=== PATIENT | female | born 1980 | race Caucasian/White ===

== ENCOUNTER → 2017-01-26 | Outpatient (CLI) | payer OTHER ==
[~2017-01-26] MED LIST: AUGM875T27 PO; DOXY100C PO; TYLE325T5 PO; TYLE650T30 PO
[2017-01-26 18:59] LABS: CONTROL LINE UCG INT CTR LINE PRESENT
[2017-01-26 19:05] LABS: MEAN CORPUSCULAR HEMOGLOBIN 29.8 pg (27.0-33.0); MEAN CORPUSCULAR HGB CONC 32.7 g/dl (32.0-36.5); MEAN CORPUSCULAR VOLUME 91.3 fl (80.0-96.0); RED CELL DISTRIBUTION WIDTH 12.8 % (11.5-14.5)
[2017-01-26 19:20] LABS: ALBUMIN 4.7 GM/DL (3.2-5.2); ALBUMIN/GLOBULIN RATIO 1.15 (1.00-1.93); ALKALINE PHOSPHATASE 96 U/L (45-117); ALT/SGPT 18 U/L (12-78); ANION GAP 10 MEQ/L (8-16); AST/SGOT 18 U/L (15-37); BILIRUBIN,TOTAL 0.3 MG/DL (0.2-1.0); BLOOD UREA NITROGEN 7 MG/DL (7-18); CALCIUM LEVEL 9.5 MG/DL (8.5-10.1); CARBON DIOXIDE LEVEL 27 MEQ/L (21-32); CHLORIDE LEVEL 104 MEQ/L (98-107); CREATININE FOR GFR 0.94 MG/DL (0.55-1.02); GLOMERULAR FILTRATION RATE > 60.0 (>60); GLUCOSE, FASTING 91 MG/DL (70-105); POTASSIUM SERUM 3.9 MEQ/L (3.5-5.1); SODIUM LEVEL 141 MEQ/L (136-145); TOTAL PROTEIN 8.8 GM/DL (6.4-8.2)
[2017-01-27 14:18] LABS: CONTROL LINE INT CTR LINE PRESENT; HIV SCRN NEGATIVE (NEGATIVE); HIV SCRN1 NEGATIVE (NEGATIVE)
== END ==
LOC: M LAB 17:10
PROVIDERS: ATTEND Family Medicine
DX: Z13.9 Encounter for screening, unspecified (principal); F11.20 Opioid dependence, uncomplicated

== ENCOUNTER → 2017-12-19 | Outpatient (CLI) | payer MEDICAID ==
[2017-12-19 13:24] LABS: HEMATOCRIT 40.9 % (36.0-47.0); HEMOGLOBIN 13.7 g/dl (12.0-16.0); MEAN CORPUSCULAR HEMOGLOBIN 30.1 pg (27.0-33.0); MEAN CORPUSCULAR HGB CONC 33.5 g/dl (32.0-36.5); MEAN CORPUSCULAR VOLUME 89.9 fl (80.0-96.0); PLATELET COUNT, AUTOMATED 388 10^3/uL (150-450); RED BLOOD COUNT 4.55 10^6/uL (4.00-5.40); RED CELL DISTRIBUTION WIDTH 13.3 % (11.5-14.5); WHITE BLOOD COUNT 9.3 10^3/uL (4.0-10.0)
[2017-12-19 13:38] LABS: CONTROL LINE UCG INT CTR LINE PRESENT; URINE PREG TEST NEGATIVE (NEGATIVE)
[2017-12-19 14:07] LABS: ALBUMIN 4.3 GM/DL (3.2-5.2); ALBUMIN/GLOBULIN RATIO 1.23 (1.00-1.93); ALKALINE PHOSPHATASE 94 U/L (45-117); ALT/SGPT 18 U/L (12-78); ANION GAP 8 MEQ/L (8-16); AST/SGOT 19 U/L (7-37); BILIRUBIN,TOTAL 0.3 MG/DL (0.2-1.0); BLOOD UREA NITROGEN 9 MG/DL (7-18); CALCIUM LEVEL 8.7 MG/DL (8.5-10.1); CARBON DIOXIDE LEVEL 31 MEQ/L (21-32); CHLORIDE LEVEL 102 MEQ/L (98-107); CREATININE FOR GFR 0.74 MG/DL (0.55-1.30); GLOMERULAR FILTRATION RATE > 60.0 (>60); GLUCOSE, FASTING 87 MG/DL (70-100); POTASSIUM SERUM 3.7 MEQ/L (3.5-5.1); SODIUM LEVEL 141 MEQ/L (136-145); TOTAL PROTEIN 7.8 GM/DL (6.4-8.2)
[2017-12-19 14:25] LABS: HEPATITIS B SURFACE ANTIGEN NEGATIVE (NEGATIVE)
[2017-12-19 14:53] LABS: HIV 1&2 SCREEN CENTAUR NEGATIVE (NEGATIVE)
[2017-12-19 14:57] LABS: CHLAMYDIA DNA AMPLIFICATION NEGATIVE (NEGATIVE); GC DNA AMPLIFICATION NEGATIVE (NEGATIVE)
[2017-12-19 19:26] LABS: HEPATITIS C VIRUS ABY INDEX 7.3 INDEX (<0.8)
[2017-12-23 00:06] LABS: HCV RNA NAA QUALITATIVE Negative (Negative)
== END ==
LOC: M LAB 12:25
DX: F11.20 Opioid dependence, uncomplicated (principal)
CPT/HCPCS: 93005

== ENCOUNTER 2017-12-29 19:56 | Emergency (ER) | payer MEDICAID ==
[2017-12-29] MEDS: BACTRIM 160MG/800MG DS TAB PO (21:24)
== END 2017-12-29 21:40 | disposition home or self-care (01) ==
LOC: M ED 19:56
DX: L02.03 Carbuncle of face (principal); F19.21 Other psychoactive substance dependence, in remission; Z79.899 Other long term (current) drug therapy; F17.210 Nicotine dependence, cigarettes, uncomplicated
CPT/HCPCS: 99282

== ENCOUNTER → 2018-01-30 | Outpatient (CLI) | payer OTHER, MEDICAID ==
[2018-01-30 11:34] LABS: HEMATOCRIT 39.1 % (36.0-47.0); HEMOGLOBIN 12.7 g/dl (12.0-16.0); MEAN CORPUSCULAR HEMOGLOBIN 28.2 pg (27.0-33.0); MEAN CORPUSCULAR HGB CONC 32.5 g/dl (32.0-36.5); MEAN CORPUSCULAR VOLUME 86.9 fl (80.0-96.0); PLATELET COUNT, AUTOMATED 296 10^3/uL (150-450); WHITE BLOOD COUNT 8.3 10^3/uL (4.0-10.0)
[2018-01-30 11:37] LABS: AMORPHOUS SEDIMENT SMALL (NEGATIVE); APPEARANCE, URINE HAZY (CLEAR); BACTERIA, URINE AUTO 1+ (NEGATIVE); BILIRUBIN, URINE AUTO NEGATIVE (NEGATIVE); BLOOD, URINE BLOOD 2+ (NEGATIVE); COLOR, URINE YELLOW (YELLOW); GLUCOSE, URINE (UA) AUTO NEGATIVE (NEGATIVE); KETONE, URINE AUTO NEGATIVE (NEGATIVE); LEUKOCYTE ESTERASE, URINE AUTO NEGATIVE (NEGATIVE); MUCUS, URINE SMALL (NEGATIVE); NITRITE, URINE AUTO NEGATIVE (NEGATIVE); PROTEIN, URINE AUTO NEGATIVE (NEGATIVE); RBC, URINE AUTO 7 /HPF (0-3); SPECIFIC GRAVITY URINE AUTO 1.025 (1.002-1.035); SQUAMOUS EPITHELIAL CELL UR AU 7 /HPF (0-6); UROBILINOGEN, URINE AUTO 0.2 mg/dL (0.0-2.0); WBC, URINE AUTO 3 /HPF (0-3)
[2018-01-30 12:15] LABS: ALBUMIN 3.9 GM/DL (3.2-5.2); ALBUMIN/GLOBULIN RATIO 1.26 (1.00-1.93); ALKALINE PHOSPHATASE 74 U/L (45-117); ALT/SGPT 18 U/L (12-78); ANION GAP 5 MEQ/L (8-16); AST/SGOT 17 U/L (7-37); BILIRUBIN,TOTAL 0.2 MG/DL (0.2-1.0); BLOOD UREA NITROGEN 16 MG/DL (7-18); CALCIUM LEVEL 8.6 MG/DL (8.5-10.1); CARBON DIOXIDE LEVEL 28 MEQ/L (21-32); CHLORIDE LEVEL 108 MEQ/L (98-107); CREATININE FOR GFR 0.72 MG/DL (0.55-1.30); GLOMERULAR FILTRATION RATE > 60.0 (>60); GLUCOSE, FASTING 94 MG/DL (70-100); POTASSIUM SERUM 4.3 MEQ/L (3.5-5.1); SODIUM LEVEL 141 MEQ/L (136-145)
== END ==
LOC: M LAB 10:45
DX: F11.20 Opioid dependence, uncomplicated (principal); F15.20 Other stimulant dependence, uncomplicated; F41.9 Anxiety disorder, unspecified
CPT/HCPCS: 93005

== ENCOUNTER → 2018-01-30 | Outpatient (CLI) | payer OTHER, MEDICAID ==
[2018-01-30 11:35] LABS: BASO % 0.5 % (0.0-1.0); EOS # 0.2 10^3/uL (0.0-0.50); EOS % 2.3 % (0.0-3.0); HEMATOCRIT 37.6 % (36.0-47.0); HEMOGLOBIN 12.3 g/dl (12.0-16.0); IMMATURE GRANULOCYTE % 0.3 % (0-3.0); LYMPH # 3.2 10^3/uL (1.5-4.5); LYMPH % 36.9 % (24.0-44.0); MEAN CORPUSCULAR HEMOGLOBIN 28.7 pg (27.0-33.0); MEAN CORPUSCULAR HGB CONC 32.7 g/dl (32.0-36.5); MEAN CORPUSCULAR VOLUME 87.6 fl (80.0-96.0); MONO # 0.7 10^3/uL (0.0-0.8); NEUTROPHILS # 4.6 10^3/uL (1.8-7.7); PLATELET COUNT, AUTOMATED 315 10^3/uL (150-450); RED BLOOD COUNT 4.29 10^6/uL (4.00-5.40); RED CELL DISTRIBUTION WIDTH 13.1 % (11.5-14.5); WHITE BLOOD COUNT 8.8 10^3/uL (4.0-10.0)
[2018-01-30 12:13] LABS: ALBUMIN 3.8 GM/DL (3.2-5.2); ALBUMIN/GLOBULIN RATIO 1.19 (1.00-1.93); ALKALINE PHOSPHATASE 75 U/L (45-117); ALT/SGPT 21 U/L (12-78); ANION GAP 7 MEQ/L (8-16); AST/SGOT 17 U/L (7-37); BILIRUBIN,TOTAL 0.2 MG/DL (0.2-1.0); BLOOD UREA NITROGEN 16 MG/DL (7-18); CALCIUM LEVEL 8.9 MG/DL (8.5-10.1); CARBON DIOXIDE LEVEL 29 MEQ/L (21-32); CHLORIDE LEVEL 106 MEQ/L (98-107); CHOLESTEROL LEVEL 164 MG/DL (<200); CHOLESTEROL RISK RATIO 2.603 (<5); CREATININE FOR GFR 0.76 MG/DL (0.55-1.30); GLOMERULAR FILTRATION RATE > 60.0 (>60); GLUCOSE, FASTING 89 MG/DL (70-100); HDL CHOLESTEROL 63 MG/DL (>40); IRON (FE) 37 UG/DL (50-170); LDL CHOLESTEROL 92.6 MG/DL (<100); LIPASE 128 U/L (73-393); NON-HDL-C 101 MG/DL; POTASSIUM SERUM 4.4 MEQ/L (3.5-5.1); SODIUM LEVEL 142 MEQ/L (136-145); TRIGLYCERIDES LEVEL 42 MG/DL (<150)
[2018-01-30 12:16] LABS: ERYTHROCYTE SEDIMENTATION RATE 17 mm/hr (0-20)
[2018-01-30 13:23] LABS: CHLAMYDIA DNA AMPLIFICATION NEGATIVE (NEGATIVE); GC DNA AMPLIFICATION NEGATIVE (NEGATIVE)
[2018-01-30 13:24] LABS: HIV 1&2 SCREEN CENTAUR NEGATIVE (NEGATIVE)
[2018-01-30 13:52] LABS: HEPATITIS C VIRUS ABY INDEX 5.7 INDEX (<0.8)
[2018-02-02 00:06] LABS: HCV RNA NAA QUALITATIVE Negative (Negative)
== END ==
LOC: M LAB 10:49
DX: Z11.3 Encounter for screening for infections with a predominantly sexual mode of transmission (principal); R10.9 Unspecified abdominal pain; F19.10 Other psychoactive substance abuse, uncomplicated; K21.9 Gastro-esophageal reflux disease without esophagitis; Z13.220 Encounter for screening for lipoid disorders; K92.1 Melena
CPT/HCPCS: 83540

== ENCOUNTER 2018-03-07 22:11 | Inpatient (IN) | payer MEDICAID, OTHER ==
[2018-03-07 23:39] LABS: HEMATOCRIT 43.1 % (36.0-47.0); MEAN CORPUSCULAR HEMOGLOBIN 28.9 pg (27.0-33.0); MEAN CORPUSCULAR HGB CONC 32.5 g/dl (32.0-36.5); MEAN CORPUSCULAR VOLUME 88.9 fl (80.0-96.0); PLATELET COUNT, AUTOMATED 317 10^3/uL (150-450); RED BLOOD COUNT 4.85 10^6/uL (4.00-5.40); RED CELL DISTRIBUTION WIDTH 13.2 % (11.5-14.5); WHITE BLOOD COUNT 8.5 10^3/uL (4.0-10.0)
[2018-03-07 23:55] LABS: CONTROL LINE HCG INT CTR LINE PRESENT; HCG, SERUM QUALITATIVE NEGATIVE (NEGATIVE)
[2018-03-08 00:11] LABS: ALBUMIN 3.8 GM/DL (3.2-5.2); ALBUMIN/GLOBULIN RATIO 1.09 (1.00-1.93); ALKALINE PHOSPHATASE 68 U/L (45-117); ALT/SGPT 27 U/L (12-78); ANION GAP 7 MEQ/L (8-16); AST/SGOT 28 U/L (7-37); BILIRUBIN,DIRECT < 0.1 MG/DL (0.0-0.2); BILIRUBIN,TOTAL 0.1 MG/DL (0.2-1.0); BLOOD UREA NITROGEN 10 MG/DL (7-18); CALCIUM LEVEL 8.9 MG/DL (8.5-10.1); CARBON DIOXIDE LEVEL 27 MEQ/L (21-32); CHLORIDE LEVEL 110 MEQ/L (98-107); CREATININE FOR GFR 0.86 MG/DL (0.55-1.30); GLOMERULAR FILTRATION RATE > 60.0 (>60); GLUCOSE, FASTING 120 MG/DL (70-100); POTASSIUM SERUM 4.3 MEQ/L (3.5-5.1); SALICYLATE LEVEL 4.1 MG/DL (5.0-30.0); SODIUM LEVEL 144 MEQ/L (136-145); THYROID STIMULATING HORMONE 0.158 uIU/ML (0.358-3.740); TOTAL PROTEIN 7.3 GM/DL (6.4-8.2)
[2018-03-08 00:12] LABS: ACETAMINOPHEN LEVEL < 2.0 UG/ML (10.0-30.0); ETHYL ALCOHOL (ETHANOL) < 0.003 % (0.000-0.010)
[2018-03-08 00:59] LABS: AMPHETAMINES LEVEL URINE POSITIVE (NEGATIVE); BARBITURATES URINE NEGATIVE (NEGATIVE); BENZODIAZEPINES URINE NEGATIVE (NEGATIVE); CANNABINOIDS URINE POSITIVE (NEGATIVE); COCAINE METABOLITE URINE NEGATIVE (NEGATIVE); METHADONE URINE POSITIVE (NEGATIVE); OPIATES URINE POSITIVE (NEGATIVE); PHENCYCLIDINE URINE NEGATIVE (NEGATIVE)
[2018-03-08] MEDS ORDERED: MOM 30ML SUSPENSION UDC PO (01:15)
[2018-03-08] MEDS ORDERED: MAALOX 30 ML SUSP *UDC PO (01:15)
[2018-03-08] MEDS ORDERED: ACETAMINOPHEN TAB 650MG DOSE (2X325MG) PO (01:15)
[2018-03-08] MEDS ORDERED: OXAZEPAM 15 MG CAP PO (01:15)
[2018-03-08] MEDS ORDERED: MIRALAX *UNIT DOSE* 17GM PACKET PO (09:00)
[2018-03-08] MEDS: busPIRone 10 MG TAB PO ×3 (09:12→21:00)
[2018-03-08] MEDS: FLUoxetine 20 MG CAP PO (09:12)
[2018-03-08] MEDS: METHADONE 10 MG TAB (S0109) PO (09:12)
[2018-03-09 08:27] LABS: FREE THYROXINE INDEX 3.2 % (1.3-4.8); T UPTAKE 35 % (30-39); THYROID STIMULATING HORMONE 0.202 uIU/ML (0.358-3.740)
[2018-03-09] MEDS: FLUoxetine 20 MG CAP PO (09:10)
[2018-03-09] MEDS: INFLUENZA QUADRIVALENT PF VACCINE 0.5ML SYRINGE (90686) IM (09:11)
[2018-03-09] MEDS: METHADONE 10 MG TAB (S0109) PO (09:11)
[2018-03-09] MEDS: busPIRone 10 MG TAB PO ×3 (09:50→21:02)
[2018-03-09] MEDS: traZODone 50 MG TAB PO (21:01)
[2018-03-10] MEDS: FLUoxetine 20 MG CAP PO (08:06)
[2018-03-10] MEDS: busPIRone 10 MG TAB PO (08:06)
[2018-03-10] MEDS: METHADONE 10 MG TAB (S0109) PO (08:07)
== END 2018-03-10 12:00 | disposition home or self-care (01) | DRG 885 ==
LOC: M ED INP 03-08 01:12 → M ED 22:11 → M PSY 03-08 01:50
DX: F33.2 Major depressive disorder, recurrent severe without psychotic features (principal); R45.851 Suicidal ideations; F11.10 Opioid abuse, uncomplicated; K59.09 Other constipation; R94.6 Abnormal results of thyroid function studies; F15.10 Other stimulant abuse, uncomplicated; F17.210 Nicotine dependence, cigarettes, uncomplicated; Z79.899 Other long term (current) drug therapy

== ENCOUNTER 2018-10-24 20:06 | Emergency (ER) | payer MEDICAID ==
[2018-10-24 20:47] LABS: CALCIUM OXALATE CRYSTALS RFX LARGE; KETONE, URINE AUTO RFX NEGATIVE (NEGATIVE); MUCUS, URINE RFX SMALL (NEGATIVE); RBC, URINE AUTO RFX 10 /HPF (0-3); SPECIFIC GRAVITY UR AUTO RFX 1.026 (1.002-1.035); SQUAM EPITHELIAL CELL UR AURFX 10 /HPF (0-6)
[2018-10-24 20:48] LABS: LEUKOCYTE ESTERASE UR AUTO RFX TRACE (NEGATIVE); NITRITE, URINE AUTO RFX POSITIVE (NEGATIVE); WBC, URINE AUTO RFX 12 /HPF (0-3)
[2018-10-24 21:07] LABS: CONTROL LINE UCG INT CTR LINE PRESENT; URINE PREG TEST NEGATIVE (NEGATIVE)
[2018-10-24] MEDS: KETOROLAC 30 MG/ML VIAL (J1885) IV (21:30)
[2018-10-24 21:54] LABS: BASO # 0.1 10^3/uL (0.0-0.2); BASO % 0.5 % (0.0-1.0); EOS # 0.3 10^3/uL (0.0-0.50); EOS % 2.3 % (0.0-3.0); HEMATOCRIT 39.5 % (36.0-47.0); IMMATURE GRANULOCYTE % 0.6 % (0-3.0); LYMPH # 3.7 10^3/uL (1.5-4.5); LYMPH % 27.7 % (24.0-44.0); MEAN CORPUSCULAR HEMOGLOBIN 29.9 pg (27.0-33.0); MEAN CORPUSCULAR HGB CONC 32.9 g/dl (32.0-36.5); MEAN CORPUSCULAR VOLUME 90.8 fl (80.0-96.0); MONO # 1.2 10^3/uL (0.0-0.8); NEUTROPHILS # 7.9 10^3/uL (1.8-7.7); NEUTROPHILS % 59.9 % (36.0-66.0); PLATELET COUNT, AUTOMATED 362 10^3/uL (150-450); RED BLOOD COUNT 4.35 10^6/uL (4.00-5.40); RED CELL DISTRIBUTION WIDTH 13.2 % (11.5-14.5); WHITE BLOOD COUNT 13.3 10^3/uL (4.0-10.0)
[2018-10-24] MEDS: cefTRIAXone SOD 1 GM in D5W MINI-BAG PLUS 50 ML IV (23:00)
[2018-10-24 23:14] LABS: ANION GAP 5 MEQ/L (8-16); BLOOD UREA NITROGEN 10 MG/DL (7-18); C REACTIVE PROTEIN QUANTITATIV < 0.30 MG/DL (0.00-0.30); CALCIUM LEVEL 7.4 MG/DL (8.5-10.1); CARBON DIOXIDE LEVEL 27 MEQ/L (21-32); CHLORIDE LEVEL 109 MEQ/L (98-107); CREATININE FOR GFR 0.71 MG/DL (0.55-1.30); GLOMERULAR FILTRATION RATE > 60.0 (>60); GLUCOSE, FASTING 78 MG/DL (70-100); SODIUM LEVEL 141 MEQ/L (136-145)
== END 2018-10-24 23:39 | disposition home or self-care (01) ==
LOC: M ED 20:06
DX: N39.0 Urinary tract infection, site not specified (principal); Z87.442 Personal history of urinary calculi; Z87.440 Personal history of urinary (tract) infections; Z72.0 Tobacco use
CPT/HCPCS: J0696

== ENCOUNTER 2018-10-31 23:07 | Inpatient (IN) | payer MEDICAID ==
[2018-10-31] MEDS: PHENobarbital 30 MG TAB PO (23:45)
[2018-11-01 00:46] LABS: HEMATOCRIT 41.1 % (36.0-47.0); HEMOGLOBIN 13.2 g/dl (12.0-15.5); MEAN CORPUSCULAR HEMOGLOBIN 29.1 pg (27.0-33.0); MEAN CORPUSCULAR HGB CONC 32.1 g/dl (32.0-36.5); MEAN CORPUSCULAR VOLUME 90.5 fl (80.0-96.0); PLATELET COUNT, AUTOMATED 413 10^3/uL (150-450); RED BLOOD COUNT 4.54 10^6/uL (4.00-5.40); RED CELL DISTRIBUTION WIDTH 13.5 % (11.5-14.5)
[2018-11-01 00:48] LABS: CONTROL LINE HCG INT CTR LINE PRESENT; HCG, SERUM QUALITATIVE NEGATIVE (NEGATIVE)
[2018-11-01 01:48] LABS: BILIRUBIN,DIRECT < 0.1 MG/DL (0.0-0.2); BILIRUBIN,TOTAL 0.1 MG/DL (0.2-1.0); CHLORIDE LEVEL 107 MEQ/L (98-107); ETHYL ALCOHOL (ETHANOL) < 0.003 % (0.000-0.010); SALICYLATE LEVEL 2.9 MG/DL (5.0-30.0); SODIUM LEVEL 143 MEQ/L (136-145); TOTAL PROTEIN 7.3 GM/DL (6.4-8.2)
[2018-11-01 01:49] LABS: ACETAMINOPHEN LEVEL < 2.0 UG/ML (10.0-30.0); ALKALINE PHOSPHATASE 106 U/L (45-117); ALT/SGPT 17 U/L (12-78); AST/SGOT 12 U/L (7-37); THYROID STIMULATING HORMONE 0.455 uIU/ML (0.358-3.740)
[2018-11-01 01:50] LABS: CREATININE FOR GFR 0.95 MG/DL (0.55-1.30); GLOMERULAR FILTRATION RATE > 60.0 (>60)
[2018-11-01 01:53] LABS: ALBUMIN 3.8 GM/DL (3.2-5.2); ALBUMIN/GLOBULIN RATIO 1.09 (1.00-1.93); BLOOD UREA NITROGEN 10 MG/DL (7-18); CALCIUM LEVEL 8.7 MG/DL (8.5-10.1); CARBON DIOXIDE LEVEL 28 MEQ/L (21-32); GLUCOSE, FASTING 118 MG/DL (70-100)
[2018-11-01 01:54] LABS: ANION GAP 8 MEQ/L (8-16)
[2018-11-01 01:58] LABS: AMPHETAMINES LEVEL URINE NEGATIVE (NEGATIVE); BARBITURATES URINE NEGATIVE (NEGATIVE); BENZODIAZEPINES URINE NEGATIVE (NEGATIVE); CANNABINOIDS URINE POSITIVE (NEGATIVE); COCAINE METABOLITE URINE NEGATIVE (NEGATIVE); METHADONE URINE NEGATIVE (NEGATIVE); OPIATES URINE NEGATIVE (NEGATIVE); PHENCYCLIDINE URINE NEGATIVE (NEGATIVE)
[2018-11-01] MEDS ORDERED: MAALOX 30 ML SUSP *UDC PO (02:30)
[2018-11-01] MEDS ORDERED: ACETAMINOPHEN TAB 650MG DOSE (2X325MG) PO (02:30)
[2018-11-01] MEDS ORDERED: MOM 30ML SUSPENSION UDC PO (02:30)
[2018-11-01] MEDS: FLUoxetine 20 MG CAP PO (15:53)
[2018-11-01] MEDS: lamoTRIgine 25 MG TAB PO (15:53)
[2018-11-01] MEDS: busPIRone 10 MG TAB PO (21:00)
[2018-11-02 06:29] LABS: HEMATOCRIT 39.9 % (36.0-47.0); MEAN CORPUSCULAR HEMOGLOBIN 29.2 pg (27.0-33.0); MEAN CORPUSCULAR HGB CONC 32.6 g/dl (32.0-36.5); MEAN CORPUSCULAR VOLUME 89.7 fl (80.0-96.0); PLATELET COUNT, AUTOMATED 364 10^3/uL (150-450); RED BLOOD COUNT 4.45 10^6/uL (4.00-5.40); RED CELL DISTRIBUTION WIDTH 13.5 % (11.5-14.5)
[2018-11-02] MEDS: FLUoxetine 20 MG CAP PO (10:24)
[2018-11-02] MEDS: lamoTRIgine 25 MG TAB PO ×2 (10:24→21:00)
[2018-11-02] MEDS: busPIRone 10 MG TAB PO ×2 (10:24→21:00)
[2018-11-02] MEDS: OLANZapine ORAL DISINTEGRATING TAB 5MG PO (13:38)
[2018-11-02] MEDS: LURASIDONE 20 MG TAB (LATUDA) PO (18:07)
[2018-11-03] MEDS: FLUoxetine 20 MG CAP PO (08:49)
[2018-11-03] MEDS: busPIRone 10 MG TAB PO ×2 (08:49→21:08)
[2018-11-03] MEDS: lamoTRIgine 25 MG TAB PO ×3 (08:49→21:08)
[2018-11-03] MEDS: GABAPENTIN 300 MG CAP PO ×2 (15:29→21:08)
[2018-11-03] MEDS: LURASIDONE 20 MG TAB (LATUDA) PO (17:56)
[2018-11-04] MEDS: FLUoxetine 20 MG CAP PO (09:10)
[2018-11-04] MEDS: busPIRone 10 MG TAB PO ×2 (09:10→21:22)
[2018-11-04] MEDS: lamoTRIgine 25 MG TAB PO ×3 (09:10→21:22)
[2018-11-04] MEDS: GABAPENTIN 300 MG CAP PO ×3 (09:10→21:22)
[2018-11-04] MEDS: LURASIDONE 20 MG TAB (LATUDA) PO (17:55)
[2018-11-05] MEDS: FLUoxetine 20 MG CAP PO (09:06)
[2018-11-05] MEDS: GABAPENTIN 300 MG CAP PO ×3 (09:06→22:44)
[2018-11-05] MEDS: lamoTRIgine 25 MG TAB PO ×3 (09:06→22:44)
[2018-11-05] MEDS: busPIRone 10 MG TAB PO ×2 (09:06→22:44)
[2018-11-05] MEDS: OLANZapine ORAL DISINTEGRATING TAB 5MG PO (12:21)
[2018-11-05] MEDS: LURASIDONE 20 MG TAB (LATUDA) PO (18:32)
[2018-11-05] MEDS: traZODone 50 MG TAB PO (22:44)
[2018-11-06] MEDS: FLUoxetine 20 MG CAP PO (08:48)
[2018-11-06] MEDS: lamoTRIgine 25 MG TAB PO (08:49)
[2018-11-06] MEDS: busPIRone 10 MG TAB PO (08:49)
[2018-11-06] MEDS: GABAPENTIN 300 MG CAP PO (08:49)
[2018-11-06] MEDS: OLANZapine ORAL DISINTEGRATING TAB 5MG PO (12:05)
== END 2018-11-06 13:03 | disposition home or self-care (01) | DRG 753 ==
LOC: M ED 23:07 → M ED INP 11-01 02:17 → M PSY 11-01 02:50
DX: F31.60 Bipolar disorder, current episode mixed, unspecified (principal); D72.829 Elevated white blood cell count, unspecified; F11.90 Opioid use, unspecified, uncomplicated; F15.90 Other stimulant use, unspecified, uncomplicated; F41.9 Anxiety disorder, unspecified; F17.200 Nicotine dependence, unspecified, uncomplicated

== ENCOUNTER → 2019-01-04 | Outpatient (CLI) | payer MEDICAID, OTHER ==
[~2019-01-04] MED LIST changes: -AUGM875T27 PO; +AUGM875T28 PO; +BACT800T5 PO; +BUPR15TA PO; +BUSP10TA PO; +BUSP30TA PO; +CIPR-249 PO; +CIPR500T3 PO; +FLUO20CA19 PO; +GABA-843 PO; +KETO10TAB PO; +LAMI25TA PO; +LATU20TA PO; +METH10CO PO; +MIRA33504 PO; +OMEP20CA3; +PATIENT COMMENT; +PRAZ1CAP PO; +PROZ20CA11 PO; +TRAZO50TA PO
[2019-01-04 18:35] LABS: BASO # 0.1 10^3/uL (0.0-0.2); BASO % 0.7 % (0.0-1.0); EOS # 0.2 10^3/uL (0.0-0.50); EOS % 1.6 % (0.0-3.0); HEMATOCRIT 42.7 % (36.0-47.0); HEMOGLOBIN 14.1 g/dl (12.0-15.5); LYMPH # 3.1 10^3/uL (1.5-4.5); LYMPH % 22.5 % (24.0-44.0); MEAN CORPUSCULAR HEMOGLOBIN 29.2 pg (27.0-33.0); MEAN CORPUSCULAR VOLUME 88.4 fl (80.0-96.0); MONO # 0.7 10^3/uL (0.0-0.8); MONO % 5.2 % (0.0-5.0); NEUTROPHILS # 9.5 10^3/uL (1.8-7.7); PLATELET COUNT, AUTOMATED 440 10^3/uL (150-450); RED BLOOD COUNT 4.83 10^6/uL (4.00-5.40); WHITE BLOOD COUNT 13.8 10^3/uL (4.0-10.0)
[2019-01-04 18:42] LABS: ALT/SGPT 16 U/L (12-78); BILIRUBIN,TOTAL 0.2 MG/DL (0.2-1.0); BLOOD UREA NITROGEN 14 MG/DL (7-18); CALCIUM LEVEL 9.5 MG/DL (8.5-10.1); CARBON DIOXIDE LEVEL 26 MEQ/L (21-32); CHLORIDE LEVEL 100 MEQ/L (98-107); CREATININE FOR GFR 0.63 MG/DL (0.55-1.30); GLOMERULAR FILTRATION RATE > 60.0 (>60); GLUCOSE, FASTING 84 MG/DL (70-100); POTASSIUM SERUM 4.2 MEQ/L (3.5-5.1); SODIUM LEVEL 136 MEQ/L (136-145)
[2019-01-04 19:39] LABS: CHLAMYDIA DNA AMPLIFICATION NEGATIVE (NEGATIVE); GC DNA AMPLIFICATION NEGATIVE (NEGATIVE)
[2019-01-05 11:37] LABS: HEPATITIS B SURFACE ANTIBODY POSITIVE (POSITIVE)
[2019-01-05 13:12] LABS: HIV 1&2 SCREEN CENTAUR NEGATIVE (NEGATIVE); RUBELLA IgG QUALITATIVE IMMUNE (IMMUNE)
[2019-01-05 13:13] LABS: HEPATITIS C VIRUS ABY INDEX 5.4 INDEX (<0.8)
[2019-01-10 00:07] LABS: HEPATITIS A IgG TOTAL Positive (Negative); HEPATITIS B CORE ANTIBODY IGG Negative (Negative); HEPATITIS C QUANTITATION HCV Not Detected IU/mL (.)
== END ==
LOC: M SMT 14:28
PROVIDERS: ATTEND Advanced Practice Midwife
DX: Z36.89 Encounter for other specified antenatal screening (principal)

== ENCOUNTER → 2019-01-24 | Outpatient (CLI) | payer MEDICAID, OTHER ==
--- NOTE | 2019-01-24 16:21 | REP ---
Obstetric ultrasound for dating and viability: There is a single intrauterine gestation in a vertex presentation. There is movement and cardiac activity. heart rate is 156 beats per minute. The placenta is posterior without previa or abruptio and is grade zero maturity. Subjectively the amniotic fluid volume appears normal. The cervix measures 2.6 cm length. Based on the ultrasound today gestational age is 15 weeks 4 days with an SHYANNE of 07/14/2019. The LMP is unknown. weight is 130 grams/0 pounds, 4 ounces. This is the 42nd percentile for 15 weeks 4 days. The following anatomic structures are identified and are unremarkable: Cranium, cavum septum pellucidum, intracranial lateral ventricles, lungs, facial profile, four-chamber heart, cardiac right and left ventricular outflow tracts, diaphragm, stomach, cord insertion, three-vessel cord, kidneys, bladder, spine and upper lower extremities. Suboptimally demonstrated because of position is the upper lip. A followup study dedicated to these structures might be considered. There are bilateral choroid plexus cysts. Electronically Signed by Luciano Mcdonnell MD 01/24/2019 04:13 P
== END ==
LOC: M RAD 13:52
PROVIDERS: ATTEND Advanced Practice Midwife
DX: Z34.82 Encounter for supervision of other normal pregnancy, second trimester (principal); Z36.87 Encounter for antenatal screening for uncertain dates; Z3A.15 15 weeks gestation of pregnancy

== ENCOUNTER 2019-07-16 11:04 | Inpatient (IN) | payer MEDICAID, OTHER ==
[~2019-07-16] VITALS: Ht 165.1 cm; Wt 86.0 kg
[~2019-07-16 11:04] MED LIST changes: -COLA100C5 PO; -IBUP80TA PO; -LABE20TAB PO; -OXYC1TAB23 PO
[2019-07-16] MEDS ORDERED: LR 1,000 ML IV SCH (11:05)
[2019-07-16] MEDS ORDERED: BICITRA 30ML SOLN UDC PO ONE (11:15)
[2019-07-16 11:25] VITALS: BP 139/87
[2019-07-16 11:42] VITALS: BP 133/83
[2019-07-16 12:35] LABS: HEMATOCRIT 32.7 % (36.0-47.0); HEMOGLOBIN 10.5 g/dl (12.0-15.5); MEAN CORPUSCULAR HEMOGLOBIN 26.1 pg (27.0-33.0); MEAN CORPUSCULAR HGB CONC 32.1 g/dl (32.0-36.5); MEAN CORPUSCULAR VOLUME 81.3 fl (80.0-96.0); PLATELET COUNT, AUTOMATED 387 10^3/uL (150-450); RED BLOOD COUNT 4.02 10^6/uL (4.00-5.40); WHITE BLOOD COUNT 11.1 10^3/uL (4.0-10.0)
[2019-07-16 13:02] LABS: AMPHETAMINES URINE REFLEX NEGATIVE (NEGATIVE); BARBITURATES URINE REFLEX NEGATIVE (NEGATIVE); BENZODIAZEPINES URINE REFLEX NEGATIVE (NEGATIVE); CANNABINOIDS URINE REFLEX NEGATIVE (NEGATIVE); COCAINE METABOLITE URINE REFLE NEGATIVE (NEGATIVE); METHADONE URINE REFLEX NEGATIVE (NEGATIVE); OPIATES URINE REFLEX NEGATIVE (NEGATIVE); PHENCYCLIDINE URINE REFLEX NEGATIVE (NEGATIVE); TOTAL PROTEIN,RANDOM URINE 55.9 MG/DL (0.0-12.0)
[2019-07-16 13:04] LABS: ALT/SGPT 9 U/L (12-78); BILIRUBIN,TOTAL 0.2 MG/DL (0.2-1.0); GLOMERULAR FILTRATION RATE > 60.0 (>60); LDH LACTATE DEHYDROGENASE 226 U/L (84-246); URIC ACID 3.7 MG/DL (2.6-6.0)
--- NOTE | 2019-07-16 13:06 | HPE ---
DATE OF ADMISSION: 07/16/2019 Nila is a 39-year-old 4, para 3-0-0-3 at 39-5/7 weeks gestation with an estimated date of confinement (EDC) of 07/18/2019 based on her report of conception date and confirmed by second trimester ultrasound. She does present to labor and delivery today following a visit in the office at [facility] where she was noted to have severe range hypertension. She reports that she has been recently checked for preeclampsia as she was incarcerated [facility] and the last time she was seen was last week for an ultrasound. She does deny headaches, visual disturbances, epigastric pain and right upper quadrant discomfort. She denies contractions, vaginal bleeding or leakage of fluid. The fetus has been active. Her care was initiated late in her due to incarceration. She did get sporadic care throughout her incarceration and has had two visits with [facility]. Her course complicated by severe range hypertension, incarceration, advanced maternal age, hepatitis C positive, illicit drug use during early , marijuana, methamphetamine and currently breech presentation. OBSTETRICAL HISTORY: May 2000, 40 week gestation, 6 pounds 9 ounces female vaginal delivery, no complications. December 2002, 40 weeks, 6 pounds 13 ounces male vaginal delivery, no complications. September 2005, 40 weeks gestation, 6 pounds 7 ounces female vaginal delivery, no complications. OBSTETRICAL LABORATORIES: O+, antibody screen negative, rubella immune, VDRL nonreactive. Urine culture no growth. Hep B surface antigen negative, HIV negative. Hep C antibody reactive. Gonorrhea and chlamydia negative. No records for review from her care during her incarceration, unknown if she completed the gestational diabetic screening or GBS during her . PAST MEDICAL HISTORY: Hepatitis C, abnormal Pap smear, childhood varicella. SURGERIES: None. FAMILY HISTORY: Diabetes. SOCIAL HISTORY: The patient is single. She does have a support person present. She reports that she quit smoking due to incarceration. She does report a history of methamphetamine, heroin and marijuana use in November 2018. Chlamydia in her history. Denies history of abuse; physical, sexual and emotional allergies. ALLERGIES: No known drug allergies. CURRENT MEDICATIONS: Reported as vitamins. OBJECTIVE: Temperature 98.1, pulse 95, respirations 16, blood pressure 139/87 with a repeat blood pressure 133/83. heart rate is 135 with moderate variability, positive accelerations, no decelerations. There is no pattern of regular contractions. Sterile vaginal exam is deferred. Breech presentation was confirmed with bedside ultrasound in the office. OBJECTIVE: Intrauterine at 39-5/7 weeks. heart rate category 1, gestational hypertension, preeclampsia. PLAN: Per consult with Dr. Estephania Cooper, admit the patient to labor and delivery. Plan for primary section due to elevated blood pressure and breech presentation. Orders have been placed for routine labs. With the addition of pre-eclamptic labs and a spot urine, urine drug screen, out of bed ad dmitry, nothing by mouth status. The patient will be consented by Dr. Estephania Cooper. Risks, benefits and alternatives have been reviewed. The patient's questions have been answered. Plan will be for section later in the day. Anesthesia and supervisor international reservations notified.
[2019-07-16 16:17] VITALS: BP 138/77
[2019-07-16 17:25] VITALS: BP 119/66
[2019-07-16] MEDS ORDERED: OXYTOCIN INJ 10 UNITS/ML VIAL (J2590) As Ordered ONE ×3 (19:24→20:51)
[2019-07-16] MEDS ORDERED: MORPHINE PRES-FREE INJ 10 MG/10 ML VIAL (J2274) As Ordered ONE (19:27)
[2019-07-16] MEDS ORDERED: NALOXONE INJ 0.4 MG/1 ML VIAL (J2310) IV PRN ×2 (19:45)
[2019-07-16] MEDS ORDERED: METOCLOPRAMIDE INJ 10MG/2ML VIAL (J2765) IV PRN (19:45)
[2019-07-16] MEDS ORDERED: NALBUPHINE HCL 10 MG/ML AMP (J2300) IV PRN ×2 (19:45→21:30)
[2019-07-16] MEDS ORDERED: ONDANSETRON 4MG/2ML VIAL (J2405) IV PRN ×2 (19:45→21:30)
[2019-07-16] MEDS ORDERED: diphenhydrAMINE INJ 50MG/ML VIAL (J1200) IV PRN (19:45)
[2019-07-16] MEDS ORDERED: ONDANSETRON 4MG/2ML VIAL (J2405) As Ordered ONE (20:03)
[2019-07-16] MEDS ORDERED: KETOROLAC 60 MG/2 ML VIAL (J1885) As Ordered ONE (20:03)
[2019-07-16] MEDS ORDERED: dexameTHASONE 4 MG/ML 1ML VIAL (J1100) As Ordered ONE (20:17)
[2019-07-16] MEDS ORDERED: PHENYLephrine HCL 500 MCG/5 ML (100MCG/ML) SYRINGE (J2370) As Ordered ONE (20:18)
[2019-07-16] MEDS ORDERED: OXYTOCIN 30 UNITS IN 0.9% NaCl 500ML IV BAG (J2590) As Ordered ONE (20:33)
[2019-07-16] MEDS ORDERED: miSOPROStol 200 MCG TAB (S0191) As Ordered ONE (20:52)
[2019-07-16] MEDS ORDERED: OXYTOCIN DRIP 30 UNITS in APPROPRIATE DILUENT 1 EA IV SCH (21:03)
[2019-07-16] MEDS ORDERED: MEASLES,MUMPS,RUBELLA VACCINE INJ (MMR-II) (90707) SC SCH (21:15)
[2019-07-16] MEDS ORDERED: PROMETHAZINE 25 MG TAB PO PRN (21:15)
[2019-07-16] MEDS ORDERED: RHOGAM 300 MCG (1500 IU) INJ (J2790) IM SCH (21:15)
[2019-07-16] MEDS ORDERED: MOM 30ML SUSPENSION UDC PO PRN (21:15)
[2019-07-16] MEDS ORDERED: miSOPROStol 200 MCG TAB (S0191) PR ONE (21:15)
[2019-07-16] MEDS ORDERED: PERCOCET 5MG/325MG TAB PO PRN (21:30)
[2019-07-16] MEDS ORDERED: fentaNYL 100 MCG/2 ML INJECTION (J3010) IV PRN (21:30)
[2019-07-16] MEDS ORDERED: HYDROMORPHONE HCL 0.5 MG/ 0.5 ML SYRINGE (J1170 PER 1) IV PRN (21:30)
[2019-07-16] MEDS: LR 1,000 ML IV SCH (21:43)
[2019-07-16] MEDS ORDERED: fentaNYL 100 MCG/2 ML INJECTION (J3010) As Ordered ONE (22:04)
--- NOTE | 2019-07-16 22:09 | RO ---
DATE OF PROCEDURE: 07/16/2019 PREOPERATIVE DIAGNOSIS: 1. Breech presentation. 2. Gestational hypertension. POSTOPERATIVE DIAGNOSES: 1. Breech presentation. 2. Gestational hypertension. PROCEDURE PERFORMED: Primary lower transverse section. SURGEON: Estephania Cooper MD SALES SECRETARY: Tatiana Bradley CNM ANESTHESIA: Spinal. ESTIMATED BLOOD LOSS: 500 mL. INTRAVENOUS FLUIDS: 1500 mL of lactated Ringer's solution. URINE OUTPUT: 150 mL. PREOP ANTIBIOTICS: 2 grams of Ancef. OPERATIVE FINDINGS: Live born male , scores 9 and 9, weight was 9 pounds 6 ounces, 2460 grams. SPECIMENS: Cord blood. INDICATIONS FOR OPERATION: This patient is a 39-year-old 4, para 3 who presented for an appointment which was a transfer-in appointment at 39 weeks 5 days, and upon evaluation, she was noted to be in a breech presentation with severely elevated blood pressure. She was counseled on management options for breech presentation, and after consultation the patient expressed desire to proceed with section. She was counseled on the risks of the procedure. DESCRIPTION OF OPERATION: After informed consent was obtained and written consent was reviewed, the patient was brought to the operating room where spinal anesthesia was placed. She was then placed in the supine position with a left lateral tilt. Costa catheter was placed and set to gravity. She was then prepped and draped in a normal sterile fashion. A time-out in the operating room was performed identifying the patient, procedure to be performed as well as drug allergies. Anesthesia was tested and deemed to be adequate. A Pfannenstiel skin incision was then made and this was carried down to the underlying rectus fascia. The fascia was then scored, and this incision was extended bilaterally. The fascia was then dissected off the underlying rectus muscles both superiorly and inferiorly. Rectus muscles were in the midline. Peritoneum was then entered The vesicouterine peritoneum was then tented and excised to create a bladder flap. Mobius retractor was then placed. A curvilinear incision was then made in the lower uterine segment. Amniotomy was then performed productive of clear fluid, and the breech was brought to the level of the incision along with the lower extremities. The infant was then delivered down to the level of scapula where the upper extremities were delivered, followed by head. Cord was clamped times two and was cut. Infant was taken over to the warmer with a good cry. Cord blood was obtained. Placenta was then delivered grossly intact. The uterus was then cleared of all clots and debris. Uterus was closed in two layers using #0 Vicryl first in a running locking fashion followed by a second layer for imbrication in a running nonlocking fashion. Incision was inspected, noted be hemostatic. The abdomen was then suctioned. The Mobius retractor was then removed. The anterior peritoneum was then reapproximated with #3-0 Vicryl. The rectus muscles were reapproximated using #3-0 Vicryl. The fascia was then closed with #0 Vicryl in a running nonlocking fashion. The subcutaneous tissue was then irrigated and suctioned. Subcutaneous tissue was then reapproximated with #3-0 Vicryl. Several subdermal stitches were placed with #3-0 Vicryl, and the skin was closed with #4-0 Monocryl in a subcuticular fashion. The incision was then clean and dry and was dressed. The patient was taken to recovery in stable condition. Counts were correct and Ms. Casey has decided to name her son Gil. Tatiana Bradley, my surgical processor, played an essential role during the surgery. She assisted with tissue retraction and identification, delivering the , as well as wound closure. MEHREEN
[2019-07-16 23:00] VITALS: BP 138/79
[2019-07-16 23:30] VITALS: BP 145/84
[2019-07-16] MEDS: PERCOCET 5MG/325MG TAB PO PRN (23:46)
[2019-07-17] VITALS (9 sets, daily range): BP systolic 107–138; BP diastolic 55–92
[2019-07-17] MEDS: KETOROLAC 30 MG/ML VIAL (J1885) IV SCH ×3 (01:18→14:22)
[2019-07-17] MEDS: LR 1,000 ML IV SCH (05:30)
[2019-07-17] MEDS ORDERED: LR 800 ML IV ONE (05:30)
--- NOTE | 2019-07-17 06:11 | IPNPDOC ---
Text Note Date of Service The patient was seen on 07/17/19. NOTE Postop Day 1 s/p primary LTCS; uncomplicated S: pain well controlled, lochia and bleeding decreasing, has not voided yet (still has catheter), ambulating without assistance, tolerating regular diet. Formula feeding. O: vitals stable Heart: RRR, no murmurs Lungs: CTA bilaterally Abd: U-1 and fundus firm Ext: no edema, nontender, negative Wesley's bilaterally A/P: 39 yo G4 now P4. Postop day 1 s/p primary LTCS. Hemodynamically stable, afebrile, good pain control. Recovering well. -Routine postoperative care and advancement. -Anticipate discharge tomorrow -CPS consult VS,Oneil, I+O VS, Oneil I+O Laboratory Tests 07/16/19 12:12 Red Blood Count 4.02, Mean Corpuscular Volume 81.3, Mean Corpuscular Hemoglobin 26.1 L, Mean Corpuscular Hemoglobin Concent 32.1, Red Cell Distribution Width 14.6 H, Aspartate Amino Transf (AST/SGOT) 16, Alanine Aminotransferase (ALT/SGPT) 9 L, Lactate Dehydrogenase 226, Total Bilirubin 0.2, Uric Acid 3.7 Vital Signs Date Time Temp Pulse Resp B/P (MAP) Pulse Ox O2 Delivery O2 Flow Rate FiO2 07/17/19 05:58 98.8 96 16 114/56 (75) 96 I&O- Last 24 Hours up to 6 AM 07/17/19 06:00 Intake Total 525 ml Output Total 1900 ml Balance -1375 ml GME ATTESTATION GME ATTESTATION My faculty preceptor for this patient encounter was physically present during the encounter and was fully available. All aspects of the patient interview, examination, medical decision making process, and medical care plan development were reviewed and approved by the faculty preceptor. The faculty preceptor is aware and concurs with the plan as stated in the body of this note and will attest to such by his/her cosignature. JOE BRAVO DO Jul 17, 2019 06:11
[2019-07-17 07:26] LABS: HEMATOCRIT 24.4 % (36.0-47.0); MEAN CORPUSCULAR HEMOGLOBIN 27.1 pg (27.0-33.0); MEAN CORPUSCULAR HGB CONC 32.8 g/dl (32.0-36.5); MEAN CORPUSCULAR VOLUME 82.7 fl (80.0-96.0); PLATELET COUNT, AUTOMATED 293 10^3/uL (150-450); RED BLOOD COUNT 2.95 10^6/uL (4.00-5.40)
[2019-07-17] MEDS ORDERED: SLF 3 ML SYR IV PRN (09:30)
[2019-07-17] MEDS: DOCUSATE SODIUM 100 MG CAP PO SCH ×2 (10:18→21:22)
[2019-07-17] MEDS: PRENATAL VITAMINS CHEWABLE TABLET PO SCH (10:19)
[2019-07-17] MEDS: SLF 3 ML SYR IV SCH ×2 (13:05→21:24)
[2019-07-17] MEDS: PERCOCET 5MG/325MG TAB PO PRN ×3 (13:06→21:24)
[2019-07-17] MEDS: IBUPROFEN 800 MG TAB PO SCH (21:22)
[2019-07-18 02:00] VITALS: BP 125/65
[2019-07-18 06:00] VITALS: BP 106/58
[2019-07-18] MEDS: SLF 3 ML SYR IV SCH (06:00)
[2019-07-18] MEDS: IBUPROFEN 800 MG TAB PO SCH (06:44)
[2019-07-18] MEDS ORDERED: OXYC1TAB23 PO (07:20)
[2019-07-18] MEDS ORDERED: IBUP80TA PO (07:21)
[2019-07-18] MEDS ORDERED: COLA100C5 PO (07:21)
[2019-07-18] MEDS: PERCOCET 5MG/325MG TAB PO PRN ×2 (07:29→13:01)
--- NOTE | 2019-07-18 07:42 | IPNPDOC ---
Text Note Date of Service The patient was seen on 07/18/19. NOTE Postop Day 2 s/p primary LTCS; uncomplicated S: pain well controlled, lochia and bleeding decreasing, has not voided yet (still has catheter), ambulating without assistance, tolerating regular diet. Formula feeding. O: vitals stable Heart: RRR, no murmurs Lungs: CTA bilaterally Abd: U-1 and fundus firm; dressing dry and intact Ext: no edema, nontender, negative Wesley's bilaterally A/P: 39 yo G4 now P4. Postop day 2 s/p primary LTCS. Hemodynamically stable, afebrile, good pain control. Recovering well. -Routine postoperative care and advancement. -Anticipate discharge tomorrow -CPS consult VS,Oneil, I+O VS, Oneil, I+O Vital Signs Date Time Temp Pulse Resp B/P (MAP) Pulse Ox O2 Delivery O2 Flow Rate FiO2 07/18/19 07:29 18 07/18/19 06:00 98.6 89 106/58 (74) 100 I&O- Last 24 Hours up to 6 AM 07/18/19 06:00 Intake Total 500 ml Output Total 420 ml Balance 80 ml GME ATTESTATION GME ATTESTATION My faculty preceptor for this patient encounter was physically present during the encounter and was fully available. All aspects of the patient interview, examination, medical decision making process, and medical care plan development were reviewed and approved by the faculty preceptor. The faculty preceptor is aware and concurs with the plan as stated in the body of this note and will attest to such by his/her cosignature. JOE BRAVO DO Jul 18, 2019 07:42
[2019-07-18] MEDS: PRENATAL VITAMINS CHEWABLE TABLET PO SCH (08:00)
[2019-07-18] MEDS: DOCUSATE SODIUM 100 MG CAP PO SCH (08:00)
--- NOTE | 2019-07-18 13:46 | DS.PDOC ---
Discharge Summary General Date of Admission Jul 16, 2019 at 11:04 Date of Discharge 07/18/2019 Attending Physician: RIA THOMAS MD. Discharge Summary PROCEDURES PERFORMED DURING STAY: primary section. ADMITTING DIAGNOSES: 1. IUP at 39.5 weeks gestation 2. GHTN/preeclampsia 3. breech presentation DISCHARGE DIAGNOSES: 1. Day 2 postoperative. COMPLICATIONS/CHIEF COMPLAINT: C/S. HISTORY OF PRESENT ILLNESS: Patient is a now a who presented to L&D after being seen in the office with a breech baby and preeclampsia. Her was complicated by incarceration, AMA, hepatitis C, illicit drug use during early , and severe range BPs. The decision was made with the patient to proceed to section. DISCHARGE MEDICATIONS: Please see below. ALLERGIES: Please see below. PHYSICAL EXAMINATION ON DISCHARGE: VITAL SIGNS: Please see below. GENERAL: A+Ox3. RESPIRATORY EXAMINATION: regular rate with no use of accessory muscles ABDOMINAL EXAMINATION: fundus firm. Incision dressing is intact. EXTREMITIES: generalized edema SKIN: dry, no rashes or lesions noted LABORATORY DATA: Please see below. ACTIVITY: As tolerated. DIET: regular DISCHARGE INSTRUCTIONS: 1. Discharge to home. 2. Follow up in 1-2 weeks for incision check and 6-8 weeks for 3. Education done on mastitis, endometritis, signs of infection, DISCHARGE CONDITION: Stable. Vital Signs/I&Os Vital Signs Date Time Temp Pulse Resp B/P (MAP) Pulse Ox O2 Delivery O2 Flow Rate FiO2 07/18/19 13:01 18 07/18/19 06:00 98.6 89 106/58 (74) 100 I&O- Last 24 Hours up to 6 AM 07/18/19 06:00 Intake Total 500 ml Output Total 420 ml Balance 80 ml Laboratory Data CBC/BMP Item Value Date Time White Blood Count 13.0 10^3/uL H 07/17/19 07 Red Blood Count 2.95 10^6/uL L 07/17/19 07 Hemoglobin 8.0 g/dl L # 07/17/19 07 Hematocrit 24.4 % L 07/17/19 07 Red Cell Distribution Width 14.6 % H 07/17/19 07 Mean Corpuscular Volume 82.7 fl 07/17/19 07 Mean Corpuscular Hemoglobin 27.1 pg 07/17/19 07 Mean Corpuscular Hemoglobin Concent 32.8 g/dl 07/17/19 0706 Platelet Count 293 10^3/uL 07/17/19 0706 Discharge Medications Scheduled Docusate Sodium (Colace) 100 Mg Capsule, 100 MG PO BID Ibuprofen (Ibuprofen) 800 Mg Tablet, 800 MG PO Q8H Scheduled PRN Oxycodone HCl/Acetaminophen (Oxycodone-Acetaminophen 5-325) 1 Each Tablet, 1-2 TAB PO Q4-6HP PRN for PAIN Allergies Coded Allergies: No Known Allergies (Unverified , 07/17/19) BASSEM YARBROUGH CNM Jul 18, 2019 13:46
[2019-07-19] MEDS ORDERED: LABE20TAB PO (20:03)
== END 2019-07-18 15:15 | disposition home or self-care (01) | DRG 540 ==
LOC: M LDI 11:04 → UNDOADMIN 11:04 → M LDI 11:08 → M OBS 11:09 → M LDI 22:50 → UNDOADMIN 07-18 14:50 → M OBS 07-18 14:50 → M LDI 07-18 14:50 → UNDODISIN 07-18 15:15
PROVIDERS: ADMIT Advanced Practice Midwife; ATTEND Advanced Practice Midwife
PROC: 10D00Z1 Extraction of Products of Conception, Low, Open Approach (ICD-10-PCS; principal; 2019-07-16 19:30)
DX: O32.1XX0 Maternal care for breech presentation, not applicable or unspecified (principal); O98.42 Viral hepatitis complicating childbirth; O14.94 Unspecified pre-eclampsia, complicating childbirth; Z37.0 Single live birth; Z3A.39 39 weeks gestation of pregnancy; B18.2 Chronic viral hepatitis C

== ENCOUNTER → 2019-07-16 | Outpatient (REF) | payer MEDICAID ==
[~2019-07-16] MED LIST changes: +COLA100C5 PO; +IBUP80TA PO; +LABE20TAB PO; -OMEP20CA3; +OMEP20CA4; +OXYC1TAB23 PO; +TRAZ1TAB10 PO; -TRAZO50TA PO
== END ==
LOC: M LAB REF 12:57
PROVIDERS: ATTEND Advanced Practice Midwife
DX: Z34.83 Encounter for supervision of other normal pregnancy, third trimester (principal); Z36.85 Encounter for antenatal screening for Streptococcus B

== ENCOUNTER 2019-07-19 15:29 | Emergency (ER) | payer MEDICAID ==
[~2019-07-19] VITALS: Ht 165.1 cm; Wt 85.3 kg
[~2019-07-19 15:29] MED LIST changes: +COLA100C5 PO; +IBUP80TA PO; +OXYC1TAB23 PO
[2019-07-19] MEDS ORDERED: NS 1,000 ML IV ONE (17:45)
[2019-07-19] MEDS ORDERED: ONDANSETRON 4MG/2ML VIAL (J2405) IV ONE (17:45)
[2019-07-19 17:59] LABS: BASO # 0.1 10^3/uL (0.0-0.2); BASO % 0.5 % (0.0-1.0); EOS # 0.2 10^3/uL (0.0-0.50); EOS % 1.8 % (0.0-3.0); HEMATOCRIT 26.4 % (36.0-47.0); HEMOGLOBIN 8.3 g/dl (12.0-15.5); LYMPH # 2.1 10^3/uL (1.5-4.5); LYMPH % 16.7 % (24.0-44.0); MEAN CORPUSCULAR HEMOGLOBIN 26.8 pg (27.0-33.0); MEAN CORPUSCULAR HGB CONC 31.4 g/dl (32.0-36.5); MEAN CORPUSCULAR VOLUME 85.2 fl (80.0-96.0); MONO # 0.8 10^3/uL (0.0-0.8); MONO % 6.7 % (0.0-5.0); PLATELET COUNT, AUTOMATED 361 10^3/uL (150-450); WHITE BLOOD COUNT 12.4 10^3/uL (4.0-10.0)
[2019-07-19 18:35] LABS: ALT/SGPT 13 U/L (12-78); BILIRUBIN,TOTAL 0.1 MG/DL (0.2-1.0); BLOOD UREA NITROGEN 7 MG/DL (7-18); CALCIUM LEVEL 7.9 MG/DL (8.5-10.1); CARBON DIOXIDE LEVEL 26 MEQ/L (21-32); CHLORIDE LEVEL 116 MEQ/L (98-107); GLOMERULAR FILTRATION RATE > 60.0 (>60); GLUCOSE, FASTING 79 MG/DL (70-100); LIPASE 131 U/L (73-393); POTASSIUM SERUM 4.2 MEQ/L (3.5-5.1); SODIUM LEVEL 145 MEQ/L (136-145); TOTAL PROTEIN 5.5 GM/DL (6.4-8.2)
--- NOTE | 2019-07-19 18:39 | REP ---
PA and lateral chest: Comparison is 04/19/2015. The left costophrenic angle is mildly effaced suggestive of a small left pleural effusion. The lung singleton otherwise clear. Cardiac size is normal. The kelvin, mediastinum, skeletal structures are unremarkable. Impression: Small left pleural effusion. Electronically Signed by Luciano Mcdonnell MD 07/19/2019 06:31 P
[2019-07-19 19:38] VITALS: BP 146/93
[2019-07-19] MEDS ORDERED: LABETALOL 200 MG TAB PO ONE (20:00)
[2019-07-19] MEDS ORDERED: LABE20TAB PO (20:03)
[2019-07-19 20:07] VITALS: BP 146/93
[2019-07-19 20:17] LABS: LDH LACTATE DEHYDROGENASE 275 U/L (84-246); NT-PRO BNP 280 PG/ML (<125)
--- NOTE | 2019-07-19 21:30 | ECGEPIP ---
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
--- NOTE | 2019-07-22 07:52 | ED PDOC ---
Post-Departure Follow-Up dr lyn and dr capone faxed formal report of cxr for fu nayelyg Can Mckeon MD Jul 22, 2019 07:52
== END 2019-07-19 20:14 | disposition home or self-care (01) ==
LOC: M ED 15:29
DX: J90 Pleural effusion, not elsewhere classified (principal); R03.0 Elevated blood-pressure reading, without diagnosis of hypertension; R60.0 Localized edema; R00.1 Bradycardia, unspecified; R94.31 Abnormal electrocardiogram [ECG] [EKG]; Z87.442 Personal history of urinary calculi; F31.9 Bipolar disorder, unspecified; Z72.0 Tobacco use
CPT/HCPCS: 71046; 80053; 81001; 83615; 83690; 83735; 83880; 85025; 93005; 96374; 99284; J2405

== ENCOUNTER → 2019-08-03 | Outpatient (CLI) | payer MEDICAID ==
[~2019-08-03] MED LIST changes: +LABE20TAB PO
== END ==
LOC: M OUTALCOH 08:16
PROVIDERS: ATTEND Psychiatry & Neurology Psychiatry
DX: Z13.39 Encounter for screening examination for other mental health and behavioral disorders (principal); F11.20 Opioid dependence, uncomplicated; F12.10 Cannabis abuse, uncomplicated

== ENCOUNTER 2019-09-13 11:00 | Outpatient (RCR) | payer MEDICAID | END 2019-09-20 | LOC: M OUTALCOH 11:00 | PROVIDERS: ATTEND Psychiatry & Neurology Psychiatry | DX: F12.10 Cannabis abuse, uncomplicated (principal); F17.200 Nicotine dependence, unspecified, uncomplicated; F10.20 Alcohol dependence, uncomplicated; F14.20 Cocaine dependence, uncomplicated; F15.20 Other stimulant dependence, uncomplicated ==

== ENCOUNTER 2019-09-27 15:15 | Outpatient (RCR) | payer MEDICAID | END 2019-10-20 | LOC: M OUTALCOH 15:15 | PROVIDERS: ATTEND Psychiatry & Neurology Psychiatry | DX: F12.10 Cannabis abuse, uncomplicated (principal); F17.200 Nicotine dependence, unspecified, uncomplicated; F10.20 Alcohol dependence, uncomplicated; F14.20 Cocaine dependence, uncomplicated; F15.20 Other stimulant dependence, uncomplicated ==

== ENCOUNTER 2019-11-01 16:00 | Outpatient (RCR) | payer MEDICAID ==
[~2019-11-01 16:00] MED LIST changes: +OMEP-172; -OMEP20CA4
== END 2019-11-20 ==
LOC: M OUTALCOH 16:00
PROVIDERS: ATTEND Psychiatry & Neurology Psychiatry
DX: F12.10 Cannabis abuse, uncomplicated (principal); F10.20 Alcohol dependence, uncomplicated; F14.20 Cocaine dependence, uncomplicated; F15.20 Other stimulant dependence, uncomplicated; F17.200 Nicotine dependence, unspecified, uncomplicated

== ENCOUNTER → 2021-01-20 | Outpatient (CLI) | payer OTHER ==
[~2021-01-20] MED LIST changes: -FLUO20CA19 PO; +FLUO20CA22 PO; +GABA-282 PO; -GABA-843 PO; -OMEP-172; +OMEP1CAP73
[2021-01-20 15:52] LABS: BASO # 0.1 10^3/uL (0.0-0.2); BASO % 1.2 % (0.0-1.0); EOS # 0.3 10^3/uL (0.0-0.5); EOS % 3.3 % (0.0-3.0); HEMATOCRIT 42.1 % (36.0-47.0); HEMOGLOBIN 13.5 g/dl (12.0-15.5); LYMPH # 2.7 10^3/uL (1.5-5.0); LYMPH % 34.2 % (24.0-44.0); MEAN CORPUSCULAR HEMOGLOBIN 27.7 pg (27.0-33.0); MEAN CORPUSCULAR HGB CONC 32.1 g/dl (32.0-36.5); MEAN CORPUSCULAR VOLUME 86.3 fl (80.0-96.0); MONO # 0.5 10^3/uL (0.0-0.8); MONO % 6.4 % (2.0-8.0); NEUTROPHILS # 4.2 10^3/uL (1.5-8.5); NEUTROPHILS % 54.5 % (36.0-66.0); PLATELET COUNT, AUTOMATED 414 10^3/uL (150-450); RED BLOOD COUNT 4.88 10^6/uL (4.00-5.40); WHITE BLOOD COUNT 7.8 10^3/uL (4.0-10.0)
[2021-01-20 16:18] LABS: ALBUMIN 4.1 GM/DL (3.2-5.2); ALT/SGPT 14 U/L (12-78); BILIRUBIN,TOTAL 0.2 MG/DL (0.2-1.0); BLOOD UREA NITROGEN 11 MG/DL (7-18); CALCIUM LEVEL 9.7 MG/DL (8.5-10.1); CARBON DIOXIDE LEVEL 31 MEQ/L (21-32); CHLORIDE LEVEL 108 MEQ/L (98-107); CREATININE FOR GFR 0.86 MG/DL (0.55-1.30); GLOMERULAR FILTRATION RATE > 60.0 (>58); GLUCOSE, FASTING 94 MG/DL (70-100); LIPASE 111 U/L (73-393); POTASSIUM SERUM 4.4 MEQ/L (3.5-5.1); SODIUM LEVEL 141 MEQ/L (136-145); TOTAL PROTEIN 7.7 GM/DL (6.4-8.2)
== END ==
LOC: M LAB 15:12
PROVIDERS: ATTEND Pediatrics
DX: R10.11 Right upper quadrant pain (principal)

== ENCOUNTER → 2021-02-04 | Outpatient (CLI) | payer OTHER ==
--- NOTE | 2021-02-04 07:46 | REP ---
INDICATION: RUQ PAIN COMPARISON: None. TECHNIQUE: Real time gerber scale ultrasound examination using curved array transducer. FINDINGS: Liver is normal in contour, size, and echogenicity without focal hepatic lesions identified. Pancreas is incompletely evaluated due to interposed bowel gas. The gallbladder is normal and without gallstones, wall thickening, or pericholecystic fluid. No biliary ductal dilatation is appreciated and the common bile duct measures 6.4 mm diameter. Right kidney is normal in reniform shape without hydronephrosis and measures 11.6 x 5.5 x 4.0 cm with a 5 mm lower pole cortical cyst noted. No ascites in the visualized right upper quadrant. IMPRESSION: Normal limited right upper quadrant ultrasound <Electronically signed by Gordon Matthew > 02/04/21 0762
== END ==
LOC: M RAD 07:08
PROVIDERS: ATTEND Pediatrics
DX: R10.11 Right upper quadrant pain (principal)